=== PATIENT | female | born 1985 | race Caucasian/White ===

== ENCOUNTER 2018-06-13 09:20 | Emergency (ER) | payer BC ==
[~2018-06-13] VITALS: Ht 172.7 cm; Wt 61.2 kg
[2018-06-13] MEDS ORDERED: PRENATAL 19 TA1 EAC1 PO (09:25)
[2018-06-13 09:45] VITALS: BP 133/83
[2018-06-13] MEDS ORDERED: Morphine Sulfate 4mg/ml Inj (IV/IM USE ONLY) IVP ONE ×6 (09:45→13:00)
--- NOTE | 2018-06-13 11:00 | Diagnostic Imaging Report ---
Indication: Left knee pain 2 views of the left knee were obtained. Findings: There is a severe, comminuted, moderately distracted fracture of the tibial plateau. The main fracture appears to be a involving the lateral tibial plateau with the fracture extending to the medial aspect of the proximal tibial metaphysis. There is also involvement of the tibial spine with a probable second nondisplaced fracture line that extends toward the medial tibial spine. There is moderate the varus angulation about the fracture. IMPRESSION: Severe comminuted fracture of the lateral tibial plateau as described above.
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
== END 2018-06-13 13:00 | disposition short-term general hospital (02) ==
LOC: EDBD 09:20 → EMR 09:35
DX: S82.252A Displaced comminuted fracture of shaft of left tibia, initial encounter for closed fracture (principal); V00.141A Fall from scooter (nonmotorized), initial encounter; Y92.488 Other paved roadways as the place of occurrence of the external cause; M25.552 Pain in left hip
CPT/HCPCS: 29505; 73560; 96361; 96374; 96375; 96376; 99285; J2270; J2405